=== PATIENT | female | born 1950 | race Caucasian/White ===

== ENCOUNTER 2019-01-12 13:13 | Emergency (ER) | payer MEDICARE, OTHER ==
[~2019-01-12] VITALS: Ht 167.6 cm; Wt 51.3 kg
--- NOTE | 2019-01-12 13:18 | NUR ---
Pt arrival to ED via POV reporting CP starting yesterday. Pt actually describes a respiratory ailment for approx 2 weeks. "Had a CXR at [facility] 2 weeks ago and just called them yesterday for result and requested antibiotic for cough/congestion in chest." Pt started ZPack yesterday and 1 pill today. Pt has a productive loose sounding cough when audibly hearing rhonchi clearing much with coughing. Pt has seen a few times in 2 weeks production yellow phlegm. Pt is O2 dependent on 3 L/M and wearing her portable chg'd to hospital O2. Attributing worsening sx is cough with a deep breathe. Pt has had sweats/chills feeling and noted 100.1 temporal. 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 Pt quit smoking in October, moved to [facility] in October from [place]. Most recent hospitalization in [place] 3 mo ago for neck surgery and fusion off C3-T1 for bilateral arm numbness not relieved. Pt states she has seen her neurologist post op for this and no new findings. Pt states, "My Dr said it will be alright as my neck xray looks fine." Pt is driven to ED by sister. Seen now by [facility] at [place] with Junie MONTALVO. Pt uses [place] [facility].
[2019-01-12] MEDS ORDERED: RT-ALBUTEROL/IPRATROPIUM 3 ML (DUONEB) VIAL INH ONE (14:00)
[2019-01-12] MEDS ORDERED: methylPREDNISolone 125 MG (Solu-MEDROL) VIAL IVP ONE (14:00)
[2019-01-12 14:11] LABS: BASOPHILS % (AUTO) 0 % (0-10); EOSINOPHILS # (AUTO) 0.1 10^3/uL (0.0-0.3); EOSINOPHILS % (AUTO) 1 % (0-10); HEMATOCRIT 38 % (35-52); HEMOGLOBIN 12.4 G/DL (11.5-16.0); LYMPHOCYTES % (AUTO) 14 % (12-44); MEAN CORPUSCULAR HEMOGLOBIN 31 PG (25-34); MEAN CORPUSCULAR HGB CONC 33 G/DL (32-36); MEAN CORPUSCULAR VOLUME 95 FL (80-99); MEAN PLATELET VOLUME 8.6 FL (7.4-10.4); MONOCYTES # (AUTO) 0.7 X 10^3 (0.0-1.0); MONOCYTES % (AUTO) 9 % (0-12); NEUTROPHILS % (AUTO) 76 % (42-75); PLATELET COUNT 301 10^3/uL (130-400); RED CELL DISTRIBUTION WIDTH 13.2 % (10.0-14.5); WHITE BLOOD COUNT 7.6 10^3/uL (4.3-11.0)
[2019-01-12 14:12] LABS: NEUTROPHILS # (AUTO) 5.8 X 10^3 (1.8-7.8)
--- NOTE | 2019-01-12 14:32 | Diagnostic Imaging Report ---
PA and lateral chest at 1:53 p.m. INDICATION: Chest pain. There are no prior studies available for comparison. FINDINGS: The heart size is within normal limits. The lungs are hyperexpanded and there are coarse perihilar markings bilaterally. This appearance does suggest chronic obstructive pulmonary disease. There is no evidence for failure, pneumonia or for pleural effusion to indicate an acute abnormality. The mediastinum is not widened. The osseous structures are intact. There is orthopedic hardware overlying the lower cervical spine. External cardiac monitoring electrodes are also noted. IMPRESSION: There is evidence of COPD but there is no sign of an acute cardiopulmonary abnormality. Dictated by: Dictated on workstation # [id number]
[2019-01-12 14:36] LABS: CHLORIDE 97 MMOL/L (98-107); POTASSIUM 4.1 MMOL/L (3.6-5.0); SODIUM 138 MMOL/L (135-145)
[2019-01-12 14:37] LABS: ALANINE AMINOTRANSFERASE 11 U/L (0-55); ALBUMIN 4.4 GM/DL (3.2-4.5); ALKALINE PHOSPHATASE 73 U/L (40-136); BILIRUBIN,TOTAL 0.3 MG/DL (0.1-1.0); BUN/CREATININE RATIO 21; CALCIUM 9.5 MG/DL (8.5-10.1); CARBON DIOXIDE 28 MMOL/L (21-32); CREATININE SERUM 0.66 MG/DL (0.60-1.30); GFR ESTIMATED > 60; GLUCOSE 106 MG/DL (70-105); TOTAL PROTEIN 7.2 GM/DL (6.4-8.2)
[2019-01-12] MEDS ORDERED: ASPIRIN 81 MG CHEW (CHILDREN'S ASA) PO ONE (15:30)
--- NOTE | 2019-01-12 15:32 | NUR ---
Spoke with Dr Jorgensen and rec'd order. Aspirin 324 mg chewed by pt at this time.
[2019-01-12] MEDS: NITROGLYCERIN 0.4 MG SL TABS BTL 25'S SL PRN ×3 (15:33→15:49)
--- NOTE | 2019-01-12 15:33 | NUR ---
NTG #1 given, see eMAR.
--- NOTE | 2019-01-12 15:34 | ED General ---
General Chief Complaint: Chest Pain Stated Complaint: CHEST PAIN Nursing Triage Note: Patient c/o chest pain. States it started yesterday. She also reports that she was seen in the clinic yesterday for bronchitis and got a prescription for a zpack. Nursing Sepsis Screen: No Definite Risk Source of Information: Patient Exam Limitations: No Limitations History of Present Illness Date Seen by Provider: Jan 12, 2019 Time Seen by Provider: 13:30 Initial Comments Patient is a 68-year-old female with history of COPD on 3 L nasal cannula at baseline who presents with progressive shortness of breath with productive cough over the past 2 weeks. Patient also reports chest pressure since yesterday. Chest pressure centrally located and does radiate to her back is described as mild to moderate and is marginally worse with deep breathing. Patient also reports increased sweats, denies fever and chills. Temperature at triage is 100. 1. Patient was started on Zithromax yesterday by her PCP and took 1 dose. No abdominal pain, flank pain, urinary frequency urgency or burning. No leg pain or swelling. No other acute symptoms or complaints. Patient denies history of coronary disease or CHF. Patient recently quit smoking 3 months ago. Timing/Duration: 12-24 Hours Severity: Mild Allergies and Home Medications Allergies Coded Allergies: meperidine (Unverified Adverse Reaction, Unknown, 01/12/19) Patient Home Medication List Home Medication List Reviewed: Yes Review of Systems Review of Systems Constitutional: see HPI EENTM: see HPI Respiratory: see HPI Cardiovascular: see HPI Genitourinary: see HPI Musculoskeletal: see HPI Skin: see HPI Psychiatric/Neurological: See HPI Hematologic/Lymphatic: See HPI Immunological/Allergic: see HPI Past Ctkgjcv-Dldrjv-Wkuqre Hx Patient Social History Alcohol Use: Denies Use Recreational Drug Use: No Smoking Status: Former Smoker Type Used: Cigarettes Former Smoker, Quit: Oct 22, 2018 2nd Hand Smoke Exposure: No Recent Foreign Travel: No Contact w/Someone Who Travel: No Recent Infectious Disease Expo: No Recent Hopitalizations: No Physical Abuse: No Sexual Abuse: No Mistreated: No Fear: No Seasonal Allergies Seasonal Allergies: No Past Medical History Surgeries: Yes (neck surgery (C3-T1), Laminectomy, ORIF R ankle) Appendectomy, Hysterectomy Respiratory: Yes (Aspiration Pneumonia) Pneumonia, COPD Cardiac: No 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 oz. 51.798435mv; BMI Method:Stated General Appearance: No Apparent Distress, Chronically ill Progress/Results/Core Measures Suspected Sepsis Recent Fever Within 48 Hours: Yes Infection Criteria Present: Documented Infection New/Unexplained Altered Menta: No Sepsis Screen: No Definite Risk SIRS Temperature:100.1 Pulse: 75 Respiratory Rate: 15 Laboratory Tests 01/12/19 13:45: White Blood Count 7.6 Blood Pressure 133 /54 Mean: 80 Laboratory Tests 01/12/19 13:45: Creatinine 0.66, Platelet Count 301, Total Bilirubin 0.3 Results/Orders Lab Results Laboratory Tests Test 01/12/19 13:45 01/12/19 14:15 01/12/19 14:47 01/12/19 15:45 Range/Units White Blood Count 7.6 4.3-11.0 10^3/uL Red Blood Count 3.97 L 4.35-5.85 10^6/uL Hemoglobin 12.4 11.5-16.0 G/DL Hematocrit 38 35-52 % Mean Corpuscular Volume 95 80-99 FL Mean Corpuscular Hemoglobin 31 25-34 PG Mean Corpuscular Hemoglobin Concent 33 32-36 G/DL Red Cell Distribution Width 13.2 10.0-14.5 % Platelet Count 301 130-400 10^3/uL Mean Platelet Volume 8.6 7.4-10.4 FL Neutrophils (%) (Auto) 76 H 42-75 % Lymphocytes (%) (Auto) 14 12-44 % Monocytes (%) (Auto) 9 0-12 % Eosinophils (%) (Auto) 1 0-10 % Basophils (%) (Auto) 0 0-10 % Neutrophils # (Auto) 5.8 1.8-7.8 X 10^3 Lymphocytes # (Auto) 1.0 1.0-4.0 X 10^3 Monocytes # (Auto) 0.7 0.0-1.0 X 10^3 Eosinophils # (Auto) 0.1 0.0-0.3 10^3/uL Basophils # (Auto) 0.0 0.0-0.1 10^3/uL Sodium Level 138 135-145 MMOL/L Potassium Level 4.1 3.6-5.0 MMOL/L Chloride Level 97 L 98-107 MMOL/L Carbon Dioxide Level 28 21-32 MMOL/L Anion Gap 13 5-14 MMOL/L Blood Urea Nitrogen 14 7-18 MG/DL Creatinine 0.66 0.60-1.30 MG/DL Estimat Glomerular Filtration Rate > 60 BUN/Creatinine Ratio 21 Glucose Level 106 H 70-105 MG/DL Calcium Level 9.5 8.5-10.1 MG/DL Corrected Calcium 9.2 8.5-10.1 MG/DL Total Bilirubin 0.3 0.1-1.0 MG/DL Aspartate Amino Transf (AST/SGOT) 15 5-34 U/L Alanine Aminotransferase (ALT/SGPT) 11 0-55 U/L Alkaline Phosphatase 73 40-136 U/L Troponin T 28 H 26 H <=10 NG/L Pro-B-Type Natriuretic Peptide 135.7 H <75.0 PG/ML Total Protein 7.2 6.4-8.2 GM/DL Albumin 4.4 3.2-4.5 GM/DL Urine Color PALE YELLOW Urine Clarity CLEAR Urine pH 7.0 5-9 Urine Specific Bixby <=1.005 1.016-1.022 Urine Protein NEGATIVE NEGATIVE Urine Glucose (UA) NEGATIVE NEGATIVE Urine Ketones NEGATIVE NEGATIVE Urine Nitrite NEGATIVE NEGATIVE Urine Bilirubin NEGATIVE NEGATIVE Urine Urobilinogen 0.2 NORMAL MG/DL Urine Leukocyte Esterase NEGATIVE NEGATIVE Urine RBC (Auto) NEGATIVE NEGATIVE Urine RBC NONE /HPF Urine WBC 0-2 /HPF Urine Squamous Epithelial Cells 0-2 /HPF Urine Crystals NONE /LPF Urine Bacteria NEGATIVE /HPF Urine Casts NONE /LPF Urine Mucus NONE /LPF Urine Culture Indicated NO D-Dimer 0.49 0.00-0.49 UG/ML My Orders Orders - MIKE ADAN DO Cbc With Automated Diff (01/12/19 13:56) Comprehensive Metabolic Panel (01/12/19 13:56) Troponin T (01/12/19 13:56) Probnp Fs (01/12/19 13:56) Chest Pa/Lat (2 View) (01/12/19 13:56) Albuterol/Ipra Inhalation Soln (Duoneb I (01/12/19 14:00) Svn Small Volume Nebulizer (01/12/19 13:56) Blood Culture (01/12/19 13:56) Methylprednisolone Sod Succ (Solu-Medrol (01/12/19 14:00) Blood Culture (01/12/19 14:14) Ekg Tracing (01/12/19 14:20) Fibrin Degradation Products (01/12/19 14:41) Nitroglycerin 0.4 Mg Btl 25's (Nitrostat (01/12/19 15:00) Aspirin Chewable Tablet (Baby Aspirin Ch (01/12/19 15:30) Troponin T (01/12/19 15:27) Ua Culture If Indicated (01/12/19 15:42) Ns Iv 1000 Ml (Sodium Chloride 0.9%) (01/12/19 16:00) Medications Given in ED Current Medications Medications Dose Ordered Sig/Pancho Route Start Time Stop Time Status Last Admin Dose Admin Albuterol/ Ipratropium 3 ml ONCE ONCE INH 01/12/19 14:00 01/12/19 14:01 DC 01/12/19 14:01 3 ML Aspirin 324 mg ONCE ONCE PO 01/12/19 15:30 01/12/19 15:31 DC 01/12/19 15:32 324 MG Methylprednisolone Sodium Succinate 62.5 mg ONCE ONCE IVP 01/12/19 14:00 01/12/19 14:01 DC 01/12/19 14:02 62.5 MG Nitroglycerin 0.4 mg NEEDED PRN SL 01/12/19 15:00 01/12/19 15:49 0.4 MG Vital Signs/I&O 01/12/19 01/12/19 13:18 15:32 Temp 100.1 100.1 Pulse 75 Resp 15 B/P (MAP) 133/54 (80) Pulse Ox 98 O2 Delivery Nasal Cannula O2 Flow Rate 3.00 Capillary Refill : Less Than 3 Seconds Blood Pressure Mean: 80 Departure Communication (Admissions) EKG: Reviewed, no acute ST elevation. Chest x-ray: No acute cardiopulmonary disease. Atypical chest pain with marginal elevation of troponin and no acute ST-T wave changes. Aspirin nitroglycerin, breathing treatment, steroids given with dramatic improvement. Dr. Bustillos accepts patient for [facility]. Impression Primary Impression: Chest pain Additional Impressions: COPD exacerbation Elevated troponin Disposition: XF SHT-TRM HOSP Condition: Stable Transfer Time Spoke to Accepting Phy: 15:41 (Dr. Montoya) Method of Transfer: EMS Departure-Patient Inst. Referrals: [facility]/JOSHUA (PCP) Primary Care Physician MARY ALICE IBANEZ (Family) Primary Care Physician MIKE ADAN DO Jan 12, 2019 15:34
--- NOTE | 2019-01-12 15:40 | NUR ---
NTG #2 given, see eMAR.
--- NOTE | 2019-01-12 15:49 | NUR ---
NTG #3 given, reported systolic 105/ to Dr Jorgensen prior and ok to administer. See eMAR.
[2019-01-12 15:55] LABS: BACTERIA,URINE NEGATIVE /HPF; BILIRUBIN,URINE NEGATIVE (NEGATIVE); CLARITY,URINE CLEAR; COLOR,URINE PALE YELLOW; GLUCOSE, URINE (UA) NEGATIVE (NEGATIVE); KETONES,URINE NEGATIVE (NEGATIVE); LEUKOCYTE ESTERASE ,URINE NEGATIVE (NEGATIVE); NITRITE,URINE NEGATIVE (NEGATIVE); PROTEIN,URINE NEGATIVE (NEGATIVE); SQUAMOUS EPITHELIAL CELL,UR 0-2 /HPF; UROBILINOGEN,URINE 0.2 MG/DL (NORMAL); WBC,URINE 0-2 /HPF
[2019-01-12] MEDS ORDERED: NS IV 1000 ML 1,000 ML IV SCH (16:00)
--- NOTE | 2019-01-12 16:06 | NUR ---
NS hung via pump to infuse at 150 ml/hr. Pt occasionally systolic in 90's/ Paiin remains at "2"/10 "near gone" with sensation continued into back. Dr Jorgensen notified. No new orders.
--- NOTE | 2019-01-12 17:00 | NUR ---
End report with speaking with Raeann in Transfer Center @ [facility] and Miguelina VAUGHN for pt's room 239. Call began at 1645.
--- NOTE | 2019-01-12 17:08 | NUR ---
Called Dispatch for transfer request.
--- NOTE | 2019-01-12 17:33 | NUR ---
EMS arriving after 2 dispatches.
[2019-01-12 17:55] VITALS: BP 93/50
--- NOTE | 2019-01-12 17:55 | NUR ---
[facility] EMS departing at this time for [facility], pt is stable. IV NS continues to infuse via gravity drip.
--- OUTSIDE RECORDS SUMMARY | 2019-01-12 19:31 | XMS REPORT | Continuity of Care Document ---
Author Organization Unknown Address Unknown Allergies There is no data. Medications There is no data. Problems There is no data. Procedures There is no data. Results Test Result Range PDM - 09 PANEL (PROFILE 1) - 10/23/18 11:46 Prescribed Drug 1 Morphine NRG Creatinine 34.5 mg/dL > or=20.0 pH 5.71 4.5 - 9.0 Oxidant NEGATIVE mcg/mL <200 Amphetamines NEGATIVE ng/mL <500 medMATCH Amphetamines CONSISTENT NRG Benzodiazepines POSITIVE ng/mL <100 Marijuana Metabolite NEGATIVE ng/mL <20 medMATCH Marijuana Metab CONSISTENT NRG Cocaine Metabolite NEGATIVE ng/mL <150 medMATCH Cocaine Metab CONSISTENT NRG Opiates POSITIVE ng/mL <100 Oxycodone NEGATIVE ng/mL <100 medMATCH Oxycodone CONSISTENT NRG COMMENT NRG Alphahydroxyalprazolam NEGATIVE ng/mL <25 medMATCH aOH alprazolam CONSISTENT NRG Alphahydroxymidazolam NEGATIVE ng/mL <50 medMATCH aOH midazolam CONSISTENT NRG Alphahydroxytriazolam NEGATIVE ng/mL <50 medMATCH aOH triazolam CONSISTENT NRG Aminoclonazepam 179 ng/mL <25 medMATCH Aminoclonazepam CONSISTENT NRG Hydroxyethylflurazepam NEGATIVE ng/mL <50 medMATCH OH,Et flurazepam CONSISTENT NRG Lorazepam NEGATIVE ng/mL <50 medMATCH Lorazepam CONSISTENT NRG Nordiazepam NEGATIVE ng/mL <50 medMATCH Nordiazepam CONSISTENT NRG Oxazepam NEGATIVE ng/mL <50 medMATCH Oxazepam CONSISTENT NRG Temazepam NEGATIVE ng/mL <50 medMATCH Temazepam CONSISTENT NRG Codeine NEGATIVE ng/mL <50 medMATCH Codeine CONSISTENT NRG Hydrocodone NEGATIVE ng/mL <50 medMATCH Hydrocodone CONSISTENT NRG Hydromorphone 278 ng/mL <50 medMATCH Hydromorphone CONSISTENT NRG Morphine >80759 ng/mL <50 medMATCH Morphine CONSISTENT NRG Norhydrocodone NEGATIVE ng/mL <50 medMATCH Norhydrocodone CONSISTENT NRG Prescribed Drug 3 Clonazepam NRG Barbiturates NEGATIVE ng/mL <300 medMATCH Barbiturates CONSISTENT NRG Methadone Metabolite NEGATIVE ng/mL <100 medMATCH Methadone Metab CONSISTENT NRG Phencyclidine NEGATIVE ng/mL <25 medMATCH Phencyclidine CONSISTENT NRG Encounters ACCT No. Visit Date/Time Discharge Status Pt. Type Provider Facility Loc./Unit Complaint [id number] 01/01/2019 16:00:00 01/01/2019 23:59:59 [facility] Outpatient [facility] [id number] 10/23/2018 11:00:00 Document Registration
[2019-01-12] MEDS ORDERED: MORP15TA (19:34)
[2019-01-12] MEDS ORDERED: CITA40TA11 (19:34)
[2019-01-12] MEDS ORDERED: PRD20T (19:34)
[2019-01-12] MEDS ORDERED: AZIT250T12 (19:34)
[2019-01-12] MEDS ORDERED: MORP-34 (19:34)
== END 2019-01-12 17:55 | disposition short-term general hospital (02) ==
LOC: ER FS 13:14
DX: J44.1 Chronic obstructive pulmonary disease with (acute) exacerbation (principal); R74.8 Abnormal levels of other serum enzymes; R07.89 Other chest pain; F32.9 Major depressive disorder, single episode, unspecified; Z88.5 Allergy status to narcotic agent; Z87.891 Personal history of nicotine dependence; Z90.49 Acquired absence of other specified parts of digestive tract; Z90.710 Acquired absence of both cervix and uterus; Z87.01 Personal history of pneumonia (recurrent); Z98.1 Arthrodesis status
CPT/HCPCS: 36415; 71046; 80053; 81000; 83880; 84484; 85025; 85379; 87040; 93005

== ENCOUNTER 2019-07-19 20:45 | Emergency (ER) | payer MEDICARE ==
[~2019-07-19] VITALS: Ht 167.7 cm; Wt 57.6 kg
[~2019-07-19 20:45] MED LIST: AZIT250T12; CITA40TA11; MORP-34; MORP15TA; PRD20T
--- NOTE | 2019-07-19 21:11 | Diagnostic Imaging Report ---
INDICATION: Right knee pain COMPARISON: None FINDINGS: 3 views of the right knee demonstrate mild degenerative joint disease in all 3 compartments. There is a moderate-sized suprapatellar joint effusion. No underlying fracture, dislocation or osseous lesion is seen. IMPRESSION: Moderate-sized joint effusion. No underlying fracture. Dictated by: Dictated on workstation # [id number]
--- NOTE | 2019-07-19 21:24 | ED Fall/Injury ---
General Chief Complaint: Lower Extremity Stated Complaint: FALL/RIGHT KNEE PAIN Nursing Triage Note: PT. STATED SHE TRIPPED OVER HER FRIEND AND FELL ON CARPET HURTING HER RIGHT KNEE. NO SWELLING, BRUISING OR BLEEDING NOTED. NO LOC Source: patient History of Present Illness Date Seen by Provider: Jul 19, 2019 Time Seen by Provider: 21:24 Initial Comments 69-year-old female presenting with complaints of right knee pain. She states that she actually tripped over her friend and fell on carpet causing pain to her right knee. She reports hearing a pop in her right knee and having severe pain right after it happened. She has not been able to bear weight on the right leg since the injury. This occurred prior to arriving in the ER. She denies hitting her head or losing consciousness. She denies any other injuries with the fall. She has only having pain in the knee. She does have swelling to the knee. She did not take anything for the pain prior to coming to the emergency department. She denies any numbness or tingling in the leg there is no bruising or abrasion noted. She states that she does use a walker at home. Allergies and Home Medications Allergies Coded Allergies: meperidine (Unverified Adverse Reaction, Unknown, 01/12/19) Home Medications Oxycodone HCl/Acetaminophen 1 Each Tablet, 1 TAB PO Q6H PRN for PAIN-SEVERE (8- 10) Prescribed by: JENNIFER WEEKS on 07/19/19 9001 Patient Home Medication List Home Medication List Reviewed: Yes Review of Systems Review of Systems Constitutional: no symptoms reported Eyes: No Symptoms Reported Ears, Nose, Mouth, Throat: no symptoms reported Respiratory: no symptoms reported Cardiovascular: no symptoms reported Gastrointestinal: no symptoms reported Genitourinary: no symptoms reported Musculoskeletal: see HPI Skin: no symptoms reported Psychiatric/Neurological: See HPI Past Lgsuviv-Sfhgpt-Euhsev Hx Past Med/Social Hx: Reviewed Nursing Past Med/Soc Hx Patient Social History Type Used: Cigarettes Former Smoker, Quit: Oct 22, 2018 2nd Hand Smoke Exposure: No Recent Foreign Travel: No Contact w/Someone Who Travel: No Recent Infectious Disease Expo: No Recent Hopitalizations: No Physical Abuse: No Sexual Abuse: No Mistreated: No Fear: No Seasonal Allergies Seasonal Allergies: No Past Medical History Surgeries: Yes (neck surgery (C3-T1), Laminectomy, ORIF R ankle) Appendectomy, Hysterectomy Respiratory: Yes (Aspiration Pneumonia) Pneumonia, COPD Cardiac: No 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 oz. 51.629068br; 20.00 BMI Method:Stated General Appearance: mild distress, thin HEENT: PERRL/EOMI, pharynx normal Cardiovascular: normal peripheral pulses Extremities: no pedal edema, no calf tenderness, normal capillary refill, other (pain with range of motion of the right knee. There is an effusion with swelling of the right knee. No laxity with valgus or varus stress of knee. There is no anterior or posterior drawer sign) Neurologic/Psychiatric: alert, normal mood/affect, oriented x 3 Skin: normal color, warm/dry [facility] Coma Score Best Eye Response: (4) Open Spontaneously Best Verbal Response: (5) Oriented Best Motor Response: (6) Obeys Commands [facility] Total: 15 Progress/Results/Core Measures Results/Orders My Orders Orders - JENNIFER WEEKS MD Ice: Apply To Affected Area (07/19/19 20:53) Elevate Affected Extremity (07/19/19 20:53) Knee 3 View Right (07/19/19 20:53) Knee Immobilizer (07/19/19 21:47) Rx-Oxycodone/Apap 5-325 Mg (Rx-Percocet (07/19/19 22:00) Vital Signs/I&O 07/19/19 07/19/19 20:55 21:45 Temp 36.3 36.7 Pulse 68 68 Resp 18 14 B/P (MAP) 111/57 (75) 94/56 Pulse Ox 94 96 O2 Delivery Room Air Room Air Blood Pressure Mean: 75 Progress Progress Note : Progress Note On the 3 views of the right knee and there is no acute fracture or dislocation. She does have joint effusion. Counseled patient on the results of the films. Will place in a knee immobilizer for letting the knee rest. Counseled on RICE therapy. Advised to follow-up with the clinic and may need to see orthopedics. She states that she follows with Junie Baker at the [facility]. Given the phone number for Franklin Olivo with orthopedics here at [place] as well. Diagnostic Imaging Diagonstic Imaging: Xray Plain Films/CT/US/NM/MRI: knee Comments NAME: TIEN POLLACK [facility] REC#: [id number] PT STATUS: REG ER : 1950 PHYSICIAN: JENNIFER WEEKS MD ADMIT DATE: 07/19/19/ER FS Signed Date of Exam:07/19/19 KNEE 3 VIEW RIGHT INDICATION: Right knee pain COMPARISON: None FINDINGS: 3 views of the right knee demonstrate mild degenerative joint disease in all 3 compartments. There is a moderate-sized suprapatellar joint effusion. No underlying fracture, dislocation or osseous lesion is seen. IMPRESSION: Moderate-sized joint effusion. No underlying fracture. Dictated by: Dictated on workstation # [id number] Dict: [id number]/19/[id number] Trans: 07/19/192119 [facility] [id number] Interpreted by: RACHAEL ROSADO Electronically signed by: RACHAEL ROSADO 07/19/192119 Departure Impression Primary Impression: Contusion of right knee, initial encounter Additional Impressions: Effusion of right knee joint Fall Qualified Codes: W19.XXXA - Unspecified fall, initial encounter Right knee pain Qualified Codes: M25.561 - Pain in right knee Disposition: 01 HOME, SELF-CARE Condition: Stable Departure-Patient Inst. Decision time for Depature: 21:50 Referrals: [facility]/JOSHUA (PCP) Primary Care Physician JUNIE BAKER (Family) Primary Care Physician Patient Instructions: Internal Derangement of the Knee (DC), Knee Immobilizer (DC), Knee Pain (DC) Add. Discharge Instructions: Use the knee immobilizer to keep from bending your knee and let it rest and have the fluid go down in your knee joint. Follow up with Junie in [place] to get referral to Orthopedics about your knee. You may have to get an MRI to look at what caused your swelling and fluid inside the knee joint. Weight bearing as you tolerate with your walker and using the knee immobilizer You would want to wear the immobilizer at all times unless you were showering. You could also try an pito bandage for compression for your knee. Ice and elevate the knee to help with swelling and pain You may try the Percocet to help with severe pain until you can check back with your primary provider and/or Orthopedics. Franklin Olivo is with Orthopedics here at [facility] in [place] if you want to try and see him his office number is [phone] All discharge instructions reviewed with patient and/or family. Voiced understanding. Scripts Oxycodone HCl/Acetaminophen (Percocet 5-325 mg Tablet) 1 Each Tablet 1 TAB PO Q6H PRN for PAIN-SEVERE (8-10) MDD 6 TABS for 3 Days, #12 TAB 0 Refills Prov: JENNIFER WEEKS MD 07/19/19 JENNIFER WEEKS MD Jul 19, 2019 21:24
[2019-07-19 21:45] VITALS: BP 94/56
[2019-07-19] MEDS ORDERED: OXYC1TAB87 PO (21:55)
[2019-07-19] MEDS ORDERED: RX-OXYCODONE/APAP 5-325 MG #4 TAB PK PO PRN (22:00)
== END 2019-07-19 21:57 | disposition home or self-care (01) ==
LOC: EDUNIT# 20:45 → ER FS 20:47
DX: S80.01XA Contusion of right knee, initial encounter (principal); M25.461 Effusion, right knee; J44.9 Chronic obstructive pulmonary disease, unspecified; F32.9 Major depressive disorder, single episode, unspecified; Z88.5 Allergy status to narcotic agent; Z87.891 Personal history of nicotine dependence; Z90.49 Acquired absence of other specified parts of digestive tract; Z90.710 Acquired absence of both cervix and uterus; W03.XXXA Other fall on same level due to collision with another person, initial encounter
CPT/HCPCS: 73562